=== PATIENT | male | born 1980 | race American Indian/Alaskan Native ===

== ENCOUNTER 2019-03-21 05:53 | Emergency (ER) | payer BC ==
--- NOTE | 2019-03-21 07:18 | Emergency Department Report ---
- General Chief complaint: Skin Rash Stated complaint: HAND RASH Time Seen by Provider: 03/21/19 07:04 Source: patient Mode of arrival: Ambulatory Limitations: No Limitations - History of Present Illness Initial comments: Patient is a 38-year-old male presents the emergency room with complaints of a rash to his hands and his forearms that began on 03/19. He was evaluated in the emergency room on 03/19 and states it was just on the hands at that time and was treated for scabies. He denies any itching/burning/irritation of the rash. He states he used the permethrin cream as directed and the rash did not improve and it spread to his arms. He states he did change soaps last week. He denies sleeping in a different place. He denies any past medical history allergies medications. the patient denies anyone else with the same rash. - Related Data Previous Rx's Medication Instructions Recorded Last Taken Type Permethrin 5% [Acticin 5% CREAM] 1 applicatio TP ONCE #1 tube 03/19/19 Unknown Rx Hydrocortisone [Hydrocortisone 1 applicatio TP BID #1 oint...g. 03/21/19 Unknown Rx 2.5% OINT] Prednisone [predniSONE 10 mg 10 mg PO .TAPER #1 tab.ds.pk 03/21/19 Unknown Rx (6-Day Pack, 21 Tabs)] Allergies Allergy/AdvReac Type Severity Reaction Status Date / Time No Known Allergies Allergy Verified 03/19/19 06:16 Abscess Boil [facility] - HPI Chief Complaint: Skin Rash Stated Complaint: HAND RASH Time Seen by Provider: 03/21/19 07:04 Home Medications: Previous Rx's Medication Instructions Recorded Last Taken Type Permethrin 5% [Acticin 5% CREAM] 1 applicatio TP ONCE #1 tube 03/19/19 Unknown Rx Hydrocortisone [Hydrocortisone 1 applicatio TP BID #1 oint...g. 03/21/19 Unknown Rx 2.5% OINT] Prednisone [predniSONE 10 mg 10 mg PO .TAPER #1 tab.ds.pk 03/21/19 Unknown Rx (6-Day Pack, 21 Tabs)] Allergies/Adverse Reactions: Allergies Allergy/AdvReac Type Severity Reaction Status Date / Time No Known Allergies Allergy Verified 03/19/19 06:16 ED Review of Systems ROS: Stated complaint: HAND RASH Other details as noted in HPI Comment: All other systems reviewed and negative ED Past Medical Hx - Past Medical History Previous Medical History?: No - Surgical History Past Surgical History?: No - Social History Smoking Status: Current Every Day Smoker Substance Use Type: Marijuana - Medications Home Medications: Home Medications Medication Instructions Recorded Confirmed Last Taken Type Permethrin 5% [Acticin 5% CREAM] 1 applicatio TP ONCE #1 tube 03/19/19 Unknown Rx Hydrocortisone [Hydrocortisone 1 applicatio TP BID #1 oint...g. 03/21/19 Unknown Rx 2.5% OINT] Prednisone [predniSONE 10 mg 10 mg PO .TAPER #1 tab.ds.pk 03/21/19 Unknown Rx (6-Day Pack, 21 Tabs)] ED Physical Exam - General Limitations: No Limitations General appearance: alert, in no apparent distress - Head Head exam: Present: atraumatic, normocephalic - Eye Eye exam: Present: normal appearance - ENT ENT exam: Present: mucous membranes moist - Neurological Exam Neurological exam: Present: alert, oriented X3 - Psychiatric Psychiatric exam: Present: normal affect, normal mood - Skin Skin exam: Present: warm, dry, other (small erythematous papules to the hands and forearms, appears to have dry skin, no exocoriations, no burrowing, no blistering, no skin denuding, no signs of infection) ED Course Vital Signs 03/21/19 03/21/19 05:57 07:33 Temperature 98.3 F Pulse Rate 112 H 88 Respiratory 18 20 Rate Blood Pressure 139/96 Blood Pressure 127/85 [Right] O2 Sat by Pulse 96 100 Oximetry ED Medical Decision Making - Lab Data Vital Signs 03/21/19 03/21/19 05:57 07:33 Temperature 98.3 F Pulse Rate 112 H 88 Respiratory 18 20 Rate Blood Pressure 139/96 Blood Pressure 127/85 [Right] O2 Sat by Pulse 96 100 Oximetry - Medical Decision Making Patient is a 38-year-old male presents the emergency room with complaints of a rash to his hands and his forearms that began on 03/19. He was evaluated in the emergency room on 03/19 and states it was just on the hands at that time and was treated for scabies. He denies any itching/burning/irritation of the rash. He states he used the permethrin cream as directed and the rash did not improve and it spread to his arms. He states he did change soaps last week. He denies sleeping in a different place. He denies any past medical history allergies medications. the patient denies anyone else with the same rash. on exam: small erythematous papules to the hands and forearms, no exocoriations, no burrowing, no blistering, no skin denuding, no signs of infection. rash appears to be a contact dermatitis. Patient given prescription for hydrocortisone cream and steroid pack. Advised to use medication as prescribed. Follow up with a primary care doctor in the next 2-3 days for reevaluation. Return to the emergency room for any new or worsening symptoms. - Differential Diagnosis scabies, bed bugs, contact derm, irritant derm, allergic rxn, exzcema Critical care attestation.: If time is entered above; I have spent that time in minutes in the direct care of this critically ill patient, excluding procedure time. ED Disposition Clinical Impression: Rash Disposition: DC- TO HOME OR SELFCARE Is pt being admited?: No Does the pt Need Aspirin: No Condition: Stable Instructions: Contact Dermatitis (ED), Acute Rash (ED) Additional Instructions: use medication as prescribed. Follow up with a primary care doctor in the next 2-3 days for reevaluation. Return to the emergency room for any new or worsening symptoms. Prescriptions: Hydrocortisone [Hydrocortisone 2.5% OINT] 1 applicatio TP BID #1 oint...g. Prednisone [predniSONE 10 mg (6-Day Pack, 21 Tabs)] 10 mg PO .TAPER #1 tab.dsanastasiia [facility]: [facility] [Primary Care Provider] - 2-3 Days [facility] [Outside] - 2-3 Days [facility] [Outside] - 2-3 Days Forms: Work/School Release Form(ED) Time of Disposition: 07:20 Print Language: SWAZI
[2019-03-21 07:34] VITALS: BP 127/85
== END 2019-03-21 07:33 | disposition home or self-care (01) ==
LOC: ED 05:53
DX: R21 Rash and other nonspecific skin eruption (principal); F17.200 Nicotine dependence, unspecified, uncomplicated; F12.10 Cannabis abuse, uncomplicated
CPT/HCPCS: 99282

== ENCOUNTER 2019-04-06 22:32 | Emergency (ER) | payer BC ==
[2019-04-06 22:46] VITALS: BP 146/76
--- NOTE | 2019-04-06 22:48 | Event Note ---
ED Screening Note Date of service: 04/06/19 Time: 22:46 ED Screening Note: 38 y/o male comes in for bilateral rash on hands and feet times for 3 weeks Was on prednisone which helped but has returned. This initial assessment/diagnostic orders/clinical plan/treatment(s) is/are subject to change based on patients health status, clinical progression and re- assessment by fellow clinical providers in the ED. Further treatment and workup at subsequent clinical providers discretion. Patient/guardian urged not to elope from the ED as their condition may be serious if not clinically assessed and managed. Initial orders include:
--- NOTE | 2019-04-06 22:55 | Emergency Department Report ---
Chief Complaint: Skin Rash Stated Complaint: BUMPS ON HANDS AND FEET Time Seen by Provider: 04/06/19 22:41 - HPI History of Present Illness: 38 y/o male comes in for bilateral rash on hands and feet times for 3 weeks Was on prednisone and Hydrocortisone which helped but has returned. - Exam Vital Signs: Vital Signs 04/06/19 22:41 Temperature 98.9 F Pulse Rate 108 H Respiratory 18 Rate Blood Pressure 146/76 O2 Sat by Pulse 98 Oximetry Physical Exam: Feet thick skin that is peeling on the plantar fee. Hands prickly rash. MSE screening note: Focused history and physical exam performed. Due to findings the following was ordered: ED Disposition for MSE Clinical Impression: Tinea pedis of both feet, Rash of hands Disposition: DC-01 TO HOME OR SELFCARE Is pt being admited?: No Does the pt Need Aspirin: No Condition: Stable Instructions: Acute Rash (ED), Tinea Pedis (ED), Contact Dermatitis (ED) Additional Instructions: Use Kenalog on hands and Lotrisone on feet. Follow up with [employer] in the next 3 days. Prescriptions: Calcium Acetate/Aluminum Sulf [[place] Packet] 1 each TP QDAY PRN #1 box PRN Reason: Rash Clotrimazole/Betamethasone Dip [Lotrisone Cream] 1 applicatio TP BID #45 cream..g. Triamcinolone Acetonide [Triamcinolone Acetonide Oint 0.5%] 15 gm TP BID PRN #15 oint...g. PRN Reason: Rash Referrals: JUSTIN LEON MD [Staff Physician] - 3-5 Days
== END 2019-04-06 23:12 | disposition home or self-care (01) ==
LOC: ED 22:32
DX: B35.3 Tinea pedis (principal)
CPT/HCPCS: 99282